=== PATIENT | female | born 1955 | race Caucasian/White ===

== ENCOUNTER 2016-04-20 17:05 | Emergency (ER) | payer OTHER | END 2016-04-20 18:39 | disposition home or self-care (01) | LOC: FER 17:05 | DX: S60.222A Contusion of left hand, initial encounter (principal); I10 Essential (primary) hypertension; F41.9 Anxiety disorder, unspecified; Z79.899 Other long term (current) drug therapy; F17.210 Nicotine dependence, cigarettes, uncomplicated; Z88.5 Allergy status to narcotic agent; Z88.6 Allergy status to analgesic agent; Z88.8 Allergy status to other drugs, medicaments and biological substances; Z23 Encounter for immunization; W23.0XXA Caught, crushed, jammed, or pinched between moving objects, initial encounter; Y92.69 Other specified industrial and construction area as the place of occurrence of the external cause; Y99.0 Civilian activity done for income or pay | CPT/HCPCS: 73130; 90471; 90715 ==

== ENCOUNTER 2021-10-08 18:44 | Emergency (ER) | payer MEDICARE ==
[2021-10-09] MEDS ORDERED: ULTRAM50 MG PO (02:10)
== END 2021-10-08 21:00 | disposition home or self-care (01) ==
LOC: FER 18:44
DX: M54.50 Low back pain, unspecified (principal); M25.552 Pain in left hip; I10 Essential (primary) hypertension; J44.9 Chronic obstructive pulmonary disease, unspecified; F17.200 Nicotine dependence, unspecified, uncomplicated; Z88.5 Allergy status to narcotic agent; W01.0XXA Fall on same level from slipping, tripping and stumbling without subsequent striking against object, initial encounter
CPT/HCPCS: 72131; 73502